=== PATIENT | female | born 1965 | race Caucasian/White ===

== ENCOUNTER 2021-12-03 11:13 | Emergency (ER) | payer MEDICAID ==
[~2021-12-03] VITALS: Ht 165.1 cm; Wt 77.0 kg
[2021-12-03 12:02] VITALS: BP 143/79
[2021-12-03] MEDS ORDERED: ACET-2708 MT (13:26)
== END 2021-12-03 13:49 | disposition home or self-care (01) ==
LOC: ER 12:16
DX: M25.562 Pain in left knee (principal); M25.561 Pain in right knee; I10 Essential (primary) hypertension; E07.9 Disorder of thyroid, unspecified
CPT/HCPCS: 73560; 99283

== ENCOUNTER 2021-12-06 23:10 | Emergency (ER) | payer MEDICAID ==
[~2021-12-06] VITALS: Ht 157.5 cm; Wt 94.6 kg
[~2021-12-06 23:10] MED LIST: ACET-2708 MT
[2021-12-07] MEDS ORDERED: ASPIRIN 81MG TABLET PO ONE (02:00)
[2021-12-07 02:17] LABS: BASOPHILS % 0.4 % (0.0-2.0); EOSINOPHILS % 3.5 % (0.0-5.0); HEMATOCRIT. 36.3 % (36.0-48.0); LYMPHOCYTES % 28.8 % (20.0-50.0); MEAN CORPUSCULAR HEMOGLOBIN 25.7 pg (28.0-32.0); MEAN CORPUSCULAR VOLUME 77.9 fL (81.0-99.0); MEAN PLATELET VOLUME 7.6 fl (7.4-10.4); MONOCYTES % 8.5 % (2.0-8.0); NEUTROPHILS % 58.8 % (40.0-76.0); PLATELET 322 x1000/uL (130-400); RED BLOOD CELL COUNT 4.66 mill/uL (4.2-5.4); RED CELL DISTRIBUTION WIDTH 14.6 % (11.6-14.6)
[2021-12-07 02:20] LABS: CHLORIDE 104 mEq/L (98-107)
[2021-12-07] MEDS ORDERED: MORPHINE SULFATE 2 MG/ML CPJ (NOT FOR IM USE) IV ONE (02:30)
[2021-12-07] MEDS ORDERED: ASPIRIN 81MG TABLET PO NR (05:00)
[2021-12-07] MEDS ORDERED: MORPHINE SULFATE 2 MG/ML CPJ (NOT FOR IM USE) IV NR (05:00)
[2021-12-07 05:30] VITALS: BP 137/78
[2021-12-07] MEDS ORDERED: IOHEXOL-350 100 ML BOTTLE ONE (05:41)
[2021-12-07] MEDS ORDERED: ACETAMINOPHEN 325MG TABLET PO ONE (05:45)
[2021-12-07] MEDS ORDERED: MECLIZINE 25MG TABLET PO ONE (05:45)
[2021-12-07] MEDS ORDERED: FAMOTIDINE 20MG/2ML VIAL IV ONE (05:45)
== END 2021-12-07 06:00 | disposition home or self-care (01) ==
LOC: ER 23:50
DX: R07.89 Other chest pain (principal); R42 Dizziness and giddiness; I10 Essential (primary) hypertension; E05.90 Thyrotoxicosis, unspecified without thyrotoxic crisis or storm
CPT/HCPCS: 36415; 71045; 71275; 80053; 83880; 84484; 85025; 85379; 93005; 96374; 99285; J2270; Q9967; Z7610